=== PATIENT | male | born 1960 | race Two or more races ===

== ENCOUNTER 2020-04-25 21:35 | Inpatient (IN) | payer OTHER, MEDICAID ==
[~2020-04-25] VITALS: Ht 165.1 cm; Wt 59.0 kg
--- NOTE | 2020-04-25 21:41 | NUR ---
PT AAOX4. AMBULATORY, BIBRA FROM HOME. PER RA PT WAS SAT 60'S, 4L NC WAS PLACED WHICH INCREASED SAT TO 88%. UPPON ARRIVAL PT PLACED IN BED 7, ON HOGSHEAD INSPECTOR, AND PULSE OX. PLACED ON 6L NC WHICH PT SAT 88%. LINE ESTABLISHED LAC 18G, BLOOD WORK COLLECTED, SENT TO LAB. AWAITING MD FOR EVAL AND ORDERS.
--- NOTE | 2020-04-25 21:44 | NUR ---
PLACED ON SIMPLE MASK 10L SAT 94%. AWARE.
[2020-04-25] MEDS ORDERED: DEXAMETHASONE SOD PHOSPHATE 10 MG/ML VIAL ONE (21:59)
[2020-04-25] MEDS ORDERED: DEXAMETHASONE SOD PHOSPHATE 10 MG/ML VIAL IV ONE (22:00)
[2020-04-25] MEDS ORDERED: IV NS 0.9% 500 ML IV ONE (22:00)
[2020-04-25 22:20] LABS: BASOPHILS % (AUTO) 0.3 % (0.0-2.0); EOSINOPHILS % (AUTO) 0.5 % (0.0-6.0); HEMATOCRIT 43 % (39-51); HEMOGLOBIN 13.8 g/dL (13.5-17.5); LYMPHOCYTES # (AUTO) 1.4 /CMM (0.8-4.8); LYMPHOCYTES % (AUTO) 11.1 % (20.0-44.0); MEAN CORPUSCULAR HGB CONC 32 g/dl (31.0-36.0); MEAN CORPUSCULAR VOLUME 94 fL (80-96); NEUTROPHILS # (AUTO) 10.1 /CMM (1.8-8.9); NEUTROPHILS % (AUTO) 80.1 % (43.0-81.0); PLATELET COUNT (AUTO) 314 /CMM (150-450); RED BLOOD CELL COUNT(AUTO) 4.58 MIL/uL (4.5-6.0); WHITE BLOOD COUNT (AUTO) 12.6 K/uL (4.3-11.0)
--- NOTE | 2020-04-25 22:27 | NUR ---
MARANDAID SWABBED, SENT TO LAB.
--- NOTE | 2020-04-25 22:41 | NUR ---
AWAITING PT TO PROVIDE URINE SAMPLE.
--- NOTE | 2020-04-25 22:42 | NUR ---
LACTIC 4.0
[2020-04-25] MEDS ORDERED: CEFTRIAXONE 1GM BAG (ER ONLY) 50 ML IV ONE (22:49)
[2020-04-25] MEDS ORDERED: AZITHROMYCIN 500 MG VIAL ONE (22:49)
[2020-04-25 22:52] LABS: D-DIMER 18.2 mg/L(FEU (0.17-0.50)
--- NOTE | 2020-04-25 22:53 | NUR ---
RAPID COVID: NEG.
[2020-04-25 22:54] LABS: ALANINE AMINOTRANSFERASE 49 U/L (12-78); ALBUMIN 2.2 g/dL (3.4-5.0); ALKALINE PHOSPHATASE 129 U/L (46-116); ASPARTATE AMINOTRANSFERASE 53 U/L (15-37); B-TYPE NATRIURETIC PEPTIDE 66 PG/ML (0-125); BILIRUBIN,TOTAL 0.9 mg/dL (0.2-1.0); CALCIUM, SERUM 8.4 mg/dL (8.5-10.1); CARBON DIOXIDE 23 mmol/L (21-32); CHLORIDE 96 mmol/L (98-107); CREATININE 1.4 mg/dL (0.6-1.3); POTASSIUM 5.4 mmol/L (3.5-5.1); SODIUM SERUM 133 mmol/L (136-145); UREA NITROGEN, BLOOD 15 mg/dL (7-18)
[2020-04-25 22:56] LABS: GLUCOSE 413 mg/dL (74-106)
[2020-04-25 23:00] LABS: CREATINE KINASE, TOTAL 52 U/L (39-308); FERRITIN 740 ng/mL (8-388)
[2020-04-25] MEDS ORDERED: IV NS 0.9% 1,000 ML BAG IV ONE (23:00)
[2020-04-25] MEDS ORDERED: CEFTRIAXONE 1GM BAG (ER ONLY) 1 GM/50 ML PIGGYBACK IV ONE (23:00)
[2020-04-25] MEDS ORDERED: AZITHROMYCIN 500 MG in IV D5W 250 ML IV SCH (23:00)
[2020-04-25 23:04] LABS: C-REACTIVE PROTEIN 16.2 mg/dL (0.0-0.9)
[2020-04-25] MEDS ORDERED: METF-442 PO (23:27)
--- NOTE | 2020-04-25 23:28 | NUR ---
MED LIST UPDATED.
--- NOTE | 2020-04-25 23:39 | NUR ---
TELE 114-1
--- NOTE | 2020-04-25 23:51 | NUR ---
REPROT GIVEN TO ABHIJIT MUÑOZ FOR ZAHRA
--- NOTE | 2020-04-26 00:05 | NUR ---
ADMIT NOTE ADMITTED PATIENT FROM ER TO ROOM 114 VIA GURNEY. PATIENT IS A/O X4, ABLE TO VERBALIZE NEEDS. NOTED WITH SOB UPON EXERTION. ON O2 15 LPM VIA NON REBREATHER, O2 91%. PUT ON TELE MONITOR, WITH ST 118. SKIN IS INTACT. WITH IV ON LEFT AC #18 PATENT AND FLUSHED. SAFETY MEASURES IMPLEMENTED. BED LOCKED AND IN LOWEST POSITION. SIDE RAILS UP X2. CALL LIGHT WITHIN REACH. WILL CONTINUE TO MONITOR.
--- NOTE | 2020-04-26 00:13 | NUR ---
PT TRANSFERED PER ACLS PROTOCOL
[2020-04-26] MEDS ORDERED: MAG HYDROX/AL HYDROX/SIMETH 30 ML UDC PO PRN (01:00)
[2020-04-26] MEDS ORDERED: ONDANSETRON HCL/PF 4 MG/2 ML VIAL IVP PRN (01:00)
[2020-04-26] MEDS ORDERED: ZOLPIDEM TARTRATE 5 MG TABLET PO PRN (01:00)
[2020-04-26] MEDS ORDERED: HYDROCODONE/APAP 5/325MG TABLET PO PRN (01:00)
[2020-04-26] MEDS ORDERED: ACETAMINOPHEN 325 MG TABLET PO PRN (01:00)
[2020-04-26] MEDS ORDERED: ASPIRIN 325 MG TABLET PO ONE (01:00)
[2020-04-26] MEDS ORDERED: DEXTROSE 50%-WATER 50 ML DISP.SYRIN IV PRN (01:00)
[2020-04-26] MEDS ORDERED: INSULIN REGULAR, HUMAN 100 UNIT/ML 3 ML VIAL IV ONE (01:00)
[2020-04-26] MEDS ORDERED: MAGNESIUM HYDROXIDE 30 ML UDC PO PRN (01:00)
[2020-04-26] MEDS ORDERED: MORPHINE SULFATE INJ 2 MG/ML DISP.SYRIN IV PRN (01:00)
[2020-04-26] MEDS ORDERED: ALBUTEROL SULFATE INH 18 GM HFA.AER.AD IH PRN ×2 (01:00→05:00)
[2020-04-26] MEDS ORDERED: ENOXAPARIN SODIUM 40 MG/0.4 ML DISP.SYRIN SQ SCH (01:00)
[2020-04-26 01:10] LABS: BILIRUBIN,DIRECT 1.1 mg/dL (0.0-0.2)
[2020-04-26] MEDS: IV NS 0.9% 1,000 ML IV PRN ×2 (01:55→17:25)
--- NOTE | 2020-04-26 02:00 | NUR ---
WITH LACTIC ACID 2.8, INFORMED ADAL WITH NO NEW ORDERS AT THIS TIME. WILL CONTINUE TO MONITOR.
[2020-04-26 02:53] LABS: CALCIUM, SERUM 7.3 mg/dL (8.5-10.1); CREATININE 1.4 mg/dL (0.6-1.3); POTASSIUM 4.9 mmol/L (3.5-5.1)
--- NOTE | 2020-04-26 03:10 | NUR ---
RELAYED GLUCOSE LEVEL 499 TO ADAL WITH NEW ORDER FOR INSULIN REGULAR 20 UNNITS SQ X1 NOW AND RECHECK IN 30 MIN. NOTED AND CARRIED OUT. WILL CONTINUE TO MONITOR.
[2020-04-26] MEDS ORDERED: INSULIN REGULAR, HUMAN 100 UNIT/ML 10 ML VIAL SQ ONE (03:30)
[2020-04-26 04:00] VITALS: BP 107/76
--- NOTE | 2020-04-26 04:15 | NUR ---
PATIENT BLOOD SUGAR 433 AT THIS TIME, INFORMED ADAL WITH NEW ORDER FOR IV BOLUS NS 500ML X1 NOW NOTED AND CARRIED OUT.
[2020-04-26] MEDS ORDERED: IV NS 0.9% 500 ML IV ONE (04:30)
[2020-04-26 06:50] LABS: BASOPHILS % (AUTO) 0.1 % (0.0-2.0); HEMATOCRIT 43 % (39-51); HEMOGLOBIN 13.6 g/dL (13.5-17.5); LYMPHOCYTES # (AUTO) 0.8 /CMM (0.8-4.8); LYMPHOCYTES % (AUTO) 7.2 % (20.0-44.0); MEAN CORPUSCULAR HGB CONC 31 g/dl (31.0-36.0); MEAN CORPUSCULAR VOLUME 98 fL (80-96); MONOCYTES # (AUTO) 0.7 /CMM (0.1-1.30); MONOCYTES % (AUTO) 5.8 % (2.0-12.0); NEUTROPHILS # (AUTO) 10.2 /CMM (1.8-8.9); NEUTROPHILS % (AUTO) 86.9 % (43.0-81.0); PLATELET COUNT (AUTO) 242 /CMM (150-450); RED BLOOD CELL COUNT(AUTO) 4.42 MIL/uL (4.5-6.0); WHITE BLOOD COUNT (AUTO) 11.7 K/uL (4.3-11.0)
[2020-04-26 07:23] LABS: ALBUMIN 1.9 g/dL (3.4-5.0); CALCIUM, SERUM 7.6 mg/dL (8.5-10.1); CREATININE 1.3 mg/dL (0.6-1.3); MAGNESIUM 2.2 mg/dL (1.8-2.4); PHOSPHORUS 5.1 mg/dL (2.5-4.9); POTASSIUM 4.2 mmol/L (3.5-5.1); TOTAL PROTEIN, SERUM 6.3 g/dL (6.4-8.2)
--- NOTE | 2020-04-26 07:30 | NUR ---
POTATO SPOTTER OPENING NOTES Patient is alert and oriented x 4, breathing even and unlabored. No c/o sob, no s/sx of respiratory distress. Patient is on 15 liters NRB with 02 saturation of 92%. NAYELI peripheral line patent and intact, flushed well with IV fluids of 100 ml/hour. HOB kept elevated. Bed is in lowest and locked position. Call light with in reach. Will continue to monitor.
[2020-04-26 07:55] LABS: THYROID STIMULATING HORMONE 1.962 uIU/mL (0.358-3.74)
--- NOTE | 2020-04-26 07:55 | NUR ---
RN NOTES PATIENT A/O X4. NO SOB OR ANY RESPIRATORY DISTRESS. ON O2 15LPM VIA NON REBREATHER MASK, O2 92%. DENIES ANY PAIN OR DISCOMFORT. TELE MONITOR ON, ST 116. WITH IV ON LEFT AC #18 RUNNING NS 100MLS/HR. ALL DUE MEDS GIVEN ORDERED. NEEDS ATTENDED PROMPTLY. SAFETY MEASURES IN PLACE. BED LOCKED AND IN LOWEST POSITION WITH SR X2 UP. CALL LIGHT WITHIN REACH. ENDORSED TO ONCOMING SHIFT.
[2020-04-26] MEDS: BLOOD SUGAR DIAGNOSTIC 1 EACH STRIP IN SCH ×4 (07:58→21:33)
[2020-04-26 08:00] VITALS: BP 122/83
[2020-04-26] MEDS: INSULIN REGULAR, HUMAN 100 UNIT/ML 3 ML VIAL SQ PRN ×4 (08:03→21:33)
[2020-04-26 08:57] LABS: BAND % (MANUAL) 5 % (0.0-5.0); LYMPHOCYTES % (MANUAL) 8 % (16-48); METAMYELOCYTES % 1 % (0-0); MONOCYTES % (MANUAL) 5 % (0-11.0); NEUTROPHILS % (MANUAL) 81 (42-76)
[2020-04-26] MEDS ORDERED: IV NS 0.9% 250 ML IV ONE (09:09)
[2020-04-26] MEDS ORDERED: IOHEXOL-350 100 ML VIAL IV ONE (09:09)
--- NOTE | 2020-04-26 10:15 | NUR ---
RN NOTES Received patient from Xray counter intelligence technician in wheelchair after his CT PE call from Xray that patient is positive for saddle. Patient assessed Vitas 114/81,106 pr, rr 25, 02 92% on 15 liters NRB. No c/o sob or respiratory distress. Informed Dr Leyva. Dr will assess the patient.Patient closely monitored..
--- NOTE | 2020-04-26 10:35 | NUR ---
RN NOTES Patient did not c/o sob, no respiratory distress noted. Vitals WNL. IV fluids running at 100 ml/hour.
[2020-04-26] MEDS: ENOXAPARIN SODIUM 60 MG/0.6 ML DISP.SYRIN SQ SCH ×2 (11:20→22:42)
[2020-04-26 12:00] VITALS: BP 110/70
--- NOTE | 2020-04-26 12:00 | NUR ---
RN notes Currently awaiting duplex venous ultrasound for BLE. Followed up with Onesimo from Radiology
[2020-04-26] MEDS: CEFEPIME 2 GM in IV D5W 100 ML IV SCH ×2 (12:04→23:34)
--- NOTE | 2020-04-26 12:51 | NUR ---
Patient given his lovenox per md orders.
[2020-04-26] MEDS: DOXYCYCLINE 100 MG in IV D5W 100 ML IV SCH (13:38)
--- NOTE | 2020-04-26 15:45 | NUR ---
Called Radiology for follow up with duplex ultrasound for BLE.
[2020-04-26 16:00] VITALS: BP 107/75
--- NOTE | 2020-04-26 16:00 | NUR ---
RN NOTES Patient's urine specimen collected per md orders. Picked up by lab
--- NOTE | 2020-04-26 17:38 | NUR ---
Patient monitored frequently and no c/o sob, 02 saturation in 95%+ via non rebreather mask at 15lpm. No c/o sob. No respiratory distress noted. Patient's vitals WNL.
[2020-04-26 18:20] LABS: BILIRUBIN,URINE NEGATIVE (NEGATIVE); COLOR,URINE YELLOW (YELLOW); LEUKOCYTE ESTERASE ,URINE NEGATIVE (NEGATIVE); NITRITE, URINE NEGATIVE (NEGATIVE); PROTEIN,URINE TRACE mg/dl (NEGATIVE); UGLUCOSE 500 MG/DL mg/dL (NEGATIVE); UROBILINOGEN,URINE 0.2 EU/dL (0.2)
--- NOTE | 2020-04-26 18:39 | NUR ---
PRELIMINARY REPORT OF BILATERAL DUPLEX LOWER EXTREMITY US SHOWED POSITIVE FOR DVT AT RIGHT SFV PROX/MID/DISTAL AND RT POPV. INITIAL RESULTS ADVISED TO RN.
--- NOTE | 2020-04-26 18:40 | NUR ---
GOLF COURSE EQUIPMENT OPERATOR NOTES Patient's duplex venous ultrasound done and received preliminary results from Bottomer Operator.Per preliminary report patient is + for DVT to proximal, mid and distal to left lower extremity in superficial femoral vein and left popliteal vein. Currently awaiting final report. Informed Dr. Gordon Garcia and no new orders.
[2020-04-26 18:48] LABS: BACTERIA,URINE Rare /HPF (None Seen); RBC,URINE 0-2 /HPF (0-2); SQUAMOUS EPITHELIAL CELL,UR None Seen /HPF (None Seen); WBC,URINE 0-2 /HPF (0-3)
--- NOTE | 2020-04-26 18:51 | NUR ---
CORRECTION: POSITIVE DVT ON THE LEFT SIDE ONLY AND NOT THE RIGHT SIDE OF THE LEG.
--- NOTE | 2020-04-26 19:23 | NUR ---
CATTLE TESTER CLOSING NOTES Patient is alert and oriented x 4, breathing even and unlabored. No c/o sob, no s/sx of respiratory distress. Patient is on 15 liters NRB with 02 saturation of 91%. NAYELI peripheral line patent and intact, flushed well with IV fluids of 100 ml/hour. HOB kept elevated. Bed is in lowest and locked position. Call light with in reach. Will endorse to next shift for follow up.
[2020-04-26 19:26] LABS: CREATININE, URINE 109.3 MG/DL (30.0-125.0); URINE TOTAL PROTEIN 52.7 mg/dL (0-11.9)
--- NOTE | 2020-04-26 19:30 | NUR ---
RECEIVED PT ON BED AWAKE A/O X3 ABLE TO VERBALIZE NEEDS ON O2 VIA NON REBREATHER MASK @ 15L SPO2 97% TELE MONITOR READS SINUS TACHY 100'S NO SIGN AND SYMPTOMS OF DISTRESS NO PAIN COMPLAINED HAVE LEFT AC IV #18 PATENT AND FLUSHED , BED ON LOWEST POSITION AND LOCKED SIDE RAILS UP X2 CALL LIGHT WITHIN REACH WILL CONT TO MONITOR THE PT
[2020-04-26 19:42] LABS: EOSINOPHIL,URINE None Seen
[2020-04-26 20:00] VITALS: BP 114/78
[2020-04-26] MEDS ORDERED: CEFEPIME 1 GM in IV D5W 50 ML IV SCH (21:00)
[2020-04-26] MEDS: DEXAMETHASONE SOD PHOSPHATE 10 MG/ML VIAL IV SCH (21:32)
[2020-04-26] MEDS: INSULIN GLARGINE, 100 UNIT/ML CARTRIDGE SQ SCH (21:33)
[2020-04-26] MEDS ORDERED: CEFTRIAXONE 1 G in IV D5W 50 ML IV SCH (22:30)
[2020-04-26] MEDS ORDERED: AZITHROMYCIN 500 MG in IV D5W 250 ML IV SCH (23:00)
[2020-04-27] VITALS (35 sets, daily range): BP systolic 88–161; BP diastolic 35–97
[2020-04-27] MEDS: DOXYCYCLINE 100 MG in IV D5W 100 ML IV SCH ×2 (00:27→14:11)
[2020-04-27] MEDS: IV NS 0.9% 1,000 ML IV PRN (05:15)
[2020-04-27 06:48] LABS: BASOPHILS # (AUTO) 0.2 /CMM (0.0-0.2); BASOPHILS % (AUTO) 1.9 % (0.0-2.0); EOSINOPHILS % (AUTO) 0.2 % (0.0-6.0); HEMATOCRIT 44 % (39-51); LYMPHOCYTES # (AUTO) 0.9 /CMM (0.8-4.8); LYMPHOCYTES % (AUTO) 7.2 % (20.0-44.0); MEAN CORPUSCULAR HGB CONC 32 g/dl (31.0-36.0); MEAN CORPUSCULAR VOLUME 95 fL (80-96); MONOCYTES # (AUTO) 0.6 /CMM (0.1-1.30); MONOCYTES % (AUTO) 5.1 % (2.0-12.0); NEUTROPHILS # (AUTO) 10.5 /CMM (1.8-8.9); NEUTROPHILS % (AUTO) 85.6 % (43.0-81.0); PLATELET COUNT (AUTO) 318 /CMM (150-450); RED BLOOD CELL COUNT(AUTO) 4.63 MIL/uL (4.5-6.0); WHITE BLOOD COUNT (AUTO) 12.3 K/uL (4.3-11.0)
--- NOTE | 2020-04-27 06:58 | NUR ---
PT ON BED ASLEEP EASY TO WAKE UP NO SIGN OF ANY DISTRESS, SPO2 97% VIA 15L NON REBREATHER MASK O2,NO SIGNIFICANT CHANGES ON CONDITION NOTED, ALL NEEDS ATTENDED TELE MONITOR READS SINUS TACHY 100'S BED ON LOWEST POSITION AND LOCKED SIDE RAILS UP X 2 CALL LIGHT WITHIN REACH WILL ENDORSED TO AM SHIFT NURSE
[2020-04-27 07:02] LABS: CALCIUM, SERUM 8.3 mg/dL (8.5-10.1); CREATININE 0.8 mg/dL (0.6-1.3); POTASSIUM 4.4 mmol/L (3.5-5.1)
--- NOTE | 2020-04-27 07:30 | NUR ---
SLACKLINE OPERATOR OPENING NOTES Patient is alert and oriented . Patient is breathing even and unlabored. NNo s/s of respiratory distress. Patient is on 15 liters NRB with 02 saturation of 96%. NAYELI peripheral line patent and intact, flushed well with IV fluids of 100 ml/hour. HOB kept elevated. Bed is in lowest and locked position. Call light with in reach. Will continue to monitor.
[2020-04-27] MEDS: INSULIN REGULAR, HUMAN 100 UNIT/ML 3 ML VIAL SQ PRN ×4 (07:54→22:52)
[2020-04-27] MEDS: BLOOD SUGAR DIAGNOSTIC 1 EACH STRIP IN SCH ×4 (07:56→22:48)
--- NOTE | 2020-04-27 08:50 | NUR ---
QUALITY CONTROL MICROBIOLOGY SUPERVISOR NOTES Patient noted with BP of 161/97. Dr Gordon Garcia placed an order for antihypertensive, medication given and Bp rechecked. and noted to be 134/67 1 hour post med
[2020-04-27] MEDS: DEXAMETHASONE SOD PHOSPHATE 10 MG/ML VIAL IV SCH (08:58)
[2020-04-27] MEDS: ENOXAPARIN SODIUM 60 MG/0.6 ML DISP.SYRIN SQ SCH ×2 (08:59→21:40)
[2020-04-27] MEDS: METOPROLOL TARTRATE 25 MG TABLET PO SCH ×2 (09:05→21:29)
[2020-04-27] MEDS: CEFEPIME 2 GM in IV D5W 100 ML IV SCH (12:22)
[2020-04-27] MEDS ORDERED: ALTEPLASE 100 MG in WATER FOR INJECTION,STERILE 100 ML IV ONE (12:30)
--- NOTE | 2020-04-27 13:00 | NUR ---
CONFERENCE CONCIERGE NOTES Patient was transferred to ICU due to order for TPA. Patient in good stable condition.Vitals 118/78,94% o2 via NRB at 15 liters. No c/o sob, breathing even and unlabored. Patient transferred with campus monitor and on . Report given to ICU nurse Grey.
--- NOTE | 2020-04-27 13:10 | NUR ---
PT RECEIVED IN ICU FROM [facility] FOR ALTEPLASE ADMINISTRATION. PT ALERT AND ORIENTED X 4 AND ABLE TO MOVE EXTREMITIES WITH NO ISSUES. PT ON 15L NRB O2 SAT 95%. PT HAS LAC 18 INTACT AND FLUSHED WELL. ALL SAFETY MEASURES IN PLACE. AWAITING MIDLINE INSERTION FOR BEGIN TPA.
--- NOTE | 2020-04-27 19:30 | NUR ---
PT CURRENTLY USING 6L NASAL CANNULA O2 SAT 96%. NO SOB OR RESPIRATORY DISTRESS, PATIENT ALERT AND ORIENTED X 4. Q15 NEURO CHECKS COMPLETED DURING TPA ADMINISTRATION, Q1H NEURO CHECKS COMPLETED FOR 4 HOURS PER PROTOCOL.
[2020-04-27] MEDS: INSULIN GLARGINE, 100 UNIT/ML CARTRIDGE SQ SCH (22:00)
[2020-04-28] VITALS (27 sets, daily range): BP systolic 90–131; BP diastolic 44–76
[2020-04-28] MEDS: CEFEPIME 2 GM in IV D5W 100 ML IV SCH ×2 (00:25→11:28)
[2020-04-28] MEDS: DOXYCYCLINE 100 MG in IV D5W 100 ML IV SCH ×2 (00:55→14:12)
[2020-04-28] MEDS: IV NS 0.9% 1,000 ML IV PRN ×2 (00:55→14:00)
--- NOTE | 2020-04-28 04:35 | NUR ---
AIRLINE LOUNGE RECEPTIONIST PT NOTED WITH ONE EPISODE OF BLOODY SECRETIONS.
--- NOTE | 2020-04-28 07:30 | NUR ---
HIGH VALUE ASSOCIATE OPENING NOTE PT LYING IN BED A/Ox4 ON NC 4LPM, SPO2 OF 96%, NO SIGNS OF RESP DISTRESS OR SOB, BREATHING IS EVEN AND UNLABORED. PT SKIN INTACT, USES URINAL. PT HAS LAC #18 AND NAYELI #18 INFUSING NS @ 100ML/HR, BOTH PATENT, FLUSHED AND INTACT WITH NO SIGNS OF INFILTRATION/INFECTION. PT DENIES PAIN. WILL F/U ABOUT REMDESIVIR WITH PHARMACY. ALL SAFETY MEASURES IN PLACE. WILL CONTINUE TO MONITOR.
[2020-04-28] MEDS: DEXAMETHASONE SOD PHOSPHATE 10 MG/ML VIAL IV SCH (08:32)
[2020-04-28] MEDS: METOPROLOL TARTRATE 25 MG TABLET PO SCH ×2 (08:33→20:46)
[2020-04-28] MEDS: INSULIN REGULAR, HUMAN 100 UNIT/ML 3 ML VIAL SQ PRN ×4 (08:38→23:28)
[2020-04-28] MEDS: ENOXAPARIN SODIUM 60 MG/0.6 ML DISP.SYRIN SQ SCH ×2 (08:38→20:49)
[2020-04-28] MEDS: BLOOD SUGAR DIAGNOSTIC 1 EACH STRIP IN SCH ×4 (08:39→23:25)
--- NOTE | 2020-04-28 08:45 | NUR ---
RN NOTE PER DR LEONARD, CONTINUE LOVENOX 60MG TREATMENT. IS AWARE PT HAD TPA INFUSION LAST SHIFT AND ONE EPISODE OF COUGHING UP BLOODY SPUTUM
[2020-04-28 09:32] LABS: ALBUMIN 2.2 g/dL (3.4-5.0); BILIRUBIN,DIRECT 0.3 mg/dL (0.0-0.2); BILIRUBIN,TOTAL 0.7 mg/dL (0.2-1.0); CALCIUM, SERUM 8.3 mg/dL (8.5-10.1); CREATININE 0.7 mg/dL (0.6-1.3); POTASSIUM 3.9 mmol/L (3.5-5.1); TOTAL PROTEIN, SERUM 6.1 g/dL (6.4-8.2)
[2020-04-28 09:33] LABS: BASOPHILS # (AUTO) 0.1 /CMM (0.0-0.2); BASOPHILS % (AUTO) 0.8 % (0.0-2.0); EOSINOPHILS % (AUTO) 0.1 % (0.0-6.0); HEMATOCRIT 40 % (39-51); HEMOGLOBIN 13.4 g/dL (13.5-17.5); LYMPHOCYTES # (AUTO) 1.7 /CMM (0.8-4.8); LYMPHOCYTES % (AUTO) 18.7 % (20.0-44.0); MEAN CORPUSCULAR HGB CONC 33 g/dl (31.0-36.0); MEAN CORPUSCULAR VOLUME 92 fL (80-96); MONOCYTES # (AUTO) 0.7 /CMM (0.1-1.30); MONOCYTES % (AUTO) 7.3 % (2.0-12.0); NEUTROPHILS # (AUTO) 6.8 /CMM (1.8-8.9); NEUTROPHILS % (AUTO) 73.1 % (43.0-81.0); PLATELET COUNT (AUTO) 346 /CMM (150-450); RED BLOOD CELL COUNT(AUTO) 4.36 MIL/uL (4.5-6.0); WHITE BLOOD COUNT (AUTO) 9.3 K/uL (4.3-11.0)
[2020-04-28] MEDS ORDERED: REMDESIVIR (CHARGED) 200 MG, *LOADING DOSE 1 EA in IV NS 0.9% 210 ML IV ONE (12:00)
--- NOTE | 2020-04-28 12:37 | NUR ---
RN NOTE 2X1 INCH HEMATOMA NOTED ON RLQ ABDOMEN AND PT COUGHING UP SCANT AMOUNTS OF BLOOD IN SPUTUM. PER DR OSWALD, HOLD LOVENOX
--- NOTE | 2020-04-28 13:30 | NUR ---
RN NOTE TRANSFERRED PT IN STABLE CONDITION TO [facility] #[id number]. REPORT GIVEN TO NISH MUÑOZ
--- NOTE | 2020-04-28 14:00 | NUR ---
PT RECEIVED ICU OVERFLOW FROM [facility]. PT ON 4L NASAL CANNULA NO SOB, PATIENT ALERT AND ORIENTED X 4. WILL CONTINUE TO MONITOR CLOSELY. IV SITE INTACT NO SIGNS OF INFECTION OR INFILTRATION.
--- NOTE | 2020-04-28 20:00 | NUR ---
Icu overflow notes Received pts in bed awake a/ox4 on 4 liters of 02 via nc sating 96 % On tele sr on the monitor . v/s stable afebrle , no sob no distress noted ,ivf ns at 100cc/hr infusing well ,all needs attended too .calllight with in reach .will continue to monitor pts.
--- NOTE | 2020-04-28 20:30 | NUR ---
icu overflow notes due meds given as ordered ,pts totransfer to icu for bed availability.
--- NOTE | 2020-04-28 21:00 | NUR ---
icu overflow notes Report given to keo ,pts will go to room 258 ,Pts transfer to icu room 258 in stable condition .
--- NOTE | 2020-04-28 22:40 | NUR ---
travel registered nurse nicu. received the pt from azeem ,icu over flow . pt ia awake, alert, follow commands. oxygen 4l via nasal cannula. process mechanic showing nsr. iv lt upper arm mid line. ivf ns 100ml/h. hob elevated. will continue to monitor vitals.
[2020-04-28] MEDS: INSULIN GLARGINE, 100 UNIT/ML CARTRIDGE SQ SCH (23:26)
[2020-04-29] VITALS (30 sets, daily range): BP systolic 98–132; BP diastolic 59–73
[2020-04-29] MEDS: CEFEPIME 2 GM in IV D5W 100 ML IV SCH ×2 (01:50→13:07)
[2020-04-29] MEDS: DOXYCYCLINE 100 MG in IV D5W 100 ML IV SCH ×2 (01:50→13:07)
[2020-04-29 04:35] LABS: BASOPHILS % (AUTO) 0.6 % (0.0-2.0); EOSINOPHILS % (AUTO) 0.2 % (0.0-6.0); HEMATOCRIT 36 % (39-51); HEMOGLOBIN 11.9 g/dL (13.5-17.5); LYMPHOCYTES # (AUTO) 2.1 /CMM (0.8-4.8); LYMPHOCYTES % (AUTO) 24.9 % (20.0-44.0); MEAN CORPUSCULAR HGB CONC 33 g/dl (31.0-36.0); MEAN CORPUSCULAR VOLUME 91 fL (80-96); MONOCYTES # (AUTO) 0.8 /CMM (0.1-1.30); MONOCYTES % (AUTO) 9.4 % (2.0-12.0); NEUTROPHILS # (AUTO) 5.4 /CMM (1.8-8.9); NEUTROPHILS % (AUTO) 64.9 % (43.0-81.0); PLATELET COUNT (AUTO) 361 /CMM (150-450); RED BLOOD CELL COUNT(AUTO) 3.99 MIL/uL (4.5-6.0); WHITE BLOOD COUNT (AUTO) 8.3 K/uL (4.3-11.0)
[2020-04-29 04:50] LABS: ALBUMIN 1.9 g/dL (3.4-5.0); BILIRUBIN,DIRECT 0.2 mg/dL (0.0-0.2); BILIRUBIN,TOTAL 0.5 mg/dL (0.2-1.0); CALCIUM, SERUM 7.9 mg/dL (8.5-10.1); CREATININE 0.7 mg/dL (0.6-1.3); TOTAL PROTEIN, SERUM 5.4 g/dL (6.4-8.2)
--- NOTE | 2020-04-29 05:48 | NUR ---
agricultural specialist. am care, given. pt slept well during shift. oxygen 4l via nasal cannula. sat 98%. no acute distress noted, station examiner showing nsr. iv rt hand ivf ns 100ml/h. hob elevated. afebrile. will continue to monitor vitals
--- NOTE | 2020-04-29 07:30 | NUR ---
RECEIVED PT AWAKE AND ORIENTED X 3-4. NOT IN ANY ACUTE DISTRESS. ON O2 AT 4LPM, WITH O2 SATURATION BETWEEN 95-97. WILL CONTINUE TO MONITOR.
[2020-04-29] MEDS: BLOOD SUGAR DIAGNOSTIC 1 EACH STRIP IN SCH ×4 (08:13→22:12)
[2020-04-29] MEDS: ENOXAPARIN SODIUM 60 MG/0.6 ML DISP.SYRIN SQ SCH ×2 (09:02→20:45)
[2020-04-29] MEDS: DEXAMETHASONE SOD PHOSPHATE 10 MG/ML VIAL IV SCH (09:02)
[2020-04-29] MEDS: METOPROLOL TARTRATE 25 MG TABLET PO SCH ×2 (09:03→20:45)
[2020-04-29] MEDS: REMDESIVIR (CHARGED) 100 MG in IV NS 0.9% 100 ML IV SCH (13:05)
--- NOTE | 2020-04-29 17:20 | NUR ---
TRANSFERRED TO MED SURG 2. PT IS ALERT / AWAKE, ORIENTED X3. ON 02 @ 4LPM WITH 02 SAT AT 95%. BEDSIDE REPORT GIVEN TO DILLON (TAI).
--- NOTE | 2020-04-29 17:30 | NUR ---
tele estimator and drafter: notes received pt from icu via bed accompanied by 2 staff. pt awake, a/ox4. no c/o pain or any discomfort. oriented to room and surroundings. vss, afebrile. instructed to call for assistance. will continue to monitor.
[2020-04-29] MEDS: INSULIN REGULAR, HUMAN 100 UNIT/ML 3 ML VIAL SQ PRN ×2 (17:56→22:15)
--- NOTE | 2020-04-29 19:20 | NUR ---
tele diagnostic radiologist: notes report given to gelacio webb) for continuity of care.
--- NOTE | 2020-04-29 19:35 | NUR ---
RN OPENING NOTES: RECEIVED PT A/OX4 IN BED RESTING COMFORTABLY. PATIENT IN NO S/SX OF ACUTE DISTRESS AT THIS TIME. NO SOB NOTED. PATIENT'S BREATHING IS EVEN AND UNLABORED. PATIENT IS ON 4L OF OXYGEN VIA NC; TOLERATING WELL. PATIENT ON TELE MONITORING READING SINUS RHYTHM HR IS @80s AT THE TIME OF RECEIVED. PATIENT ON CONSISTENT CARB DIET; TOLERATES WELL. NOTED IV SITE ON L AC #18 AND L UA MIDLINE; BOTH PATENT, INTACT AND FLUSHING WELL; NO S/S OF INFECTION OR INFILTRATION. WITH IV FLUID RUNNING ORDERED. SAFETY MEASURES HAVE BEEN PROVIDED AND IMPLEMENTED. PATIENT BED ALARM IS ON. HEAD OF BED ELEVATED. BED IS LOCKED, IN LOWEST POSITION AND SIDE RAILS UP. CALL LIGHT WITHIN REACH OF THE PATIENT. APPLICABLE ISOLATION PRECAUTIONS IN PLACE. WILL CONTINUE TO MONITOR AND REASSESS FOR ANY CHANGES AND WILL CARRY OUT ANY ONGOING AND ACTIVE MD ORDER.
[2020-04-29] MEDS: INSULIN GLARGINE, 100 UNIT/ML CARTRIDGE SQ SCH (22:15)
--- NOTE | 2020-04-29 23:00 | NUR ---
RN NOTES PATIENT REMAINS IN NO ACUTE RESPIRATORY DISTRESS AT THIS TIME, NO CHANGES TO CONDITION/STATUS. MANAGER ENVIRONMENTAL AFFAIRS WELL AWARE. WILL CONTINUE TO MONITOR AND REASSESS FOR ANY CHANGES THROUGHOUT THE SHIF
[2020-04-30] VITALS: BP 102/68
[2020-04-30] MEDS: CEFEPIME 2 GM in IV D5W 100 ML IV SCH (00:30)
[2020-04-30] MEDS: DOXYCYCLINE 100 MG in IV D5W 100 ML IV SCH (00:33)
[2020-04-30] MEDS: IV NS 0.9% 1,000 ML IV PRN (01:08)
--- NOTE | 2020-04-30 03:00 | NUR ---
RN NOTES NO CHANGES IN PATIENT CONDITION AT THIS TIME PATIENT VITALS STABLE, NO SIGNS OF ACUTE RESPIRATORY DISTRESS. PATIENT STILL IN BED SLEEPING COMFORTABLY. WILL CONTINUE TO MONITOR AND REASSESS FOR ANY CHANGES THROUGHOUT THE SHIFT.
[2020-04-30 04:00] VITALS: BP_SYST 101; BP_SYST 108; BP_DIAS 66; BP_DIAS 68
[2020-04-30 06:24] LABS: BASOPHILS # (AUTO) 0.1 /CMM (0.0-0.2); BASOPHILS % (AUTO) 0.9 % (0.0-2.0); HEMATOCRIT 36 % (39-51); HEMOGLOBIN 12.2 g/dL (13.5-17.5); LYMPHOCYTES # (AUTO) 1.9 /CMM (0.8-4.8); MEAN CORPUSCULAR HGB CONC 34 g/dl (31.0-36.0); MEAN CORPUSCULAR VOLUME 91 fL (80-96); MONOCYTES # (AUTO) 0.9 /CMM (0.1-1.30); MONOCYTES % (AUTO) 9.4 % (2.0-12.0); NEUTROPHILS # (AUTO) 6.3 /CMM (1.8-8.9); NEUTROPHILS % (AUTO) 68.7 % (43.0-81.0); PLATELET COUNT (AUTO) 382 /CMM (150-450); RED BLOOD CELL COUNT(AUTO) 3.93 MIL/uL (4.5-6.0); WHITE BLOOD COUNT (AUTO) 9.2 K/uL (4.3-11.0)
[2020-04-30] MEDS: INSULIN REGULAR, HUMAN 100 UNIT/ML 3 ML VIAL SQ PRN ×4 (06:34→21:48)
[2020-04-30] MEDS: BLOOD SUGAR DIAGNOSTIC 1 EACH STRIP IN SCH ×4 (06:34→21:39)
--- NOTE | 2020-04-30 06:50 | NUR ---
RN CLOSING NOTE: PATIENT REMAINS IN ROOM IN NO SIGNS OF RESPIRATORY DISTRESS. SAFETY MEASURES IMPLEMENTED, BED IN LOWEST POSITION, LOCKED, SIDE RAILS UP, CALL LIGHT WITHIN REACH. ALL NEEDS AND ORDERS ADDRESSED DURING THE SHIFT. IV ACCESS MAINTAINED INTACT, SECURED AND FLUSHING WELL. ALL DUE MEDS GIVEN ORDERED & SCHEDULED ; PATIENT TOLERATED WELL. PATIENT KEPT CLEAN AND COMFORTABLE WITHIN THE SHIFT. PATIENT ENDORSED TO INCOMING SHIFT RN WITH STABLE VITAL SIGN AND FOR CONTINUITY OF CARE.
[2020-04-30 07:03] LABS: ALBUMIN 1.9 g/dL (3.4-5.0); BILIRUBIN,DIRECT 0.2 mg/dL (0.0-0.2); BILIRUBIN,TOTAL 0.5 mg/dL (0.2-1.0); CALCIUM, SERUM 8.3 mg/dL (8.5-10.1); CREATININE 0.6 mg/dL (0.6-1.3); POTASSIUM 4.6 mmol/L (3.5-5.1); TOTAL PROTEIN, SERUM 5.4 g/dL (6.4-8.2)
--- NOTE | 2020-04-30 07:51 | NUR ---
TELE/RN OPENING NOTES RECEIVED PATIENT ON BED, ALERT AND ORIENTED X4. PATIENT IS ON 4 L OXYGEN VIA NASAL CANNULA SATURATING WELL. PATIENT IN NO APPARENT RESPIRATORY DISTRESS NOTED. NO SIGN AND SYMPTOM OF PAIN NOTED AT THIS TIME. TELE MONITOR READING SINUS RHYTHM 85 BPM. WILL CONTINUE TO MONITOR.
[2020-04-30 08:00] VITALS: BP 102/64
[2020-04-30] MEDS: DEXAMETHASONE SOD PHOSPHATE 10 MG/ML VIAL IV SCH (08:43)
[2020-04-30] MEDS: ENOXAPARIN SODIUM 60 MG/0.6 ML DISP.SYRIN SQ SCH (08:44)
[2020-04-30] MEDS: METOPROLOL TARTRATE 25 MG TABLET PO SCH ×2 (08:44→20:57)
--- NOTE | 2020-04-30 09:55 | NUR ---
TELE/RN NOTES BP 102/64 P 84 METOPROLOL 25MG P.O. WAS WITH HELD. WILL CONTINUE TO MONITOR.
[2020-04-30] MEDS: REMDESIVIR (CHARGED) 100 MG in IV NS 0.9% 100 ML IV SCH (12:14)
[2020-04-30 16:13] VITALS: BP 113/84
[2020-04-30] MEDS: APIXABAN 5 MG TABLET PO SCH (16:17)
--- NOTE | 2020-04-30 19:24 | NUR ---
TELE/RN CLOSING NOTES PATIENT IS ON BED. ALERT AND ORIENTED X4. PATIENT IS ON 4 L OXYGEN VIA NASAL CANNULA SATURATION 96%. PATIENT IN NO APPARENT RESPIRATORY DISTRESS NOTED. NO COMPLAINED OF PAIN NOTED AT THIS TIME. TELE MONITOR READING SINUS RHYTHM 84 BPM. SEEN EXAMINED BY MD WITH ORDERS MADE AND CARRIED. ALL DUE MEDICATIONS WAS GIVEN. SAFETY PRECAUTIONS WAS IN PLACED. BED IN LOWEST POSITION AND LOCKED. SPECIAL EFFECTS TECHNICIAN RAIL UP AND LOCKED X2. CALL LIGHT LIGHT WITHIN REACH. WILL ENDORSED TO TUBE MILL OPERATOR FOR ZAHRA.
--- NOTE | 2020-04-30 19:28 | NUR ---
patient services clerk opening notes Received Pt from morning nurse. Pt is sitting in bed comfortably watching TV. Pt is alert and orientedX4. Respiration on 3 L NC. No SOB. No S/S of distress noted. NAYELI#18 is clean, intact and flushes well, SL. LAC# 18 is clean, intact and SL. Tele monitor showed SR HR at 75 bpm. Safety precautions is maintained. Bed at low position, brakes locked, side rails upX2 and call light is within reach. Will continue to monitor.
[2020-04-30 20:00] VITALS: BP 109/66
[2020-04-30] MEDS: INSULIN GLARGINE, 100 UNIT/ML CARTRIDGE SQ SCH (21:46)
[2020-05-01] VITALS: BP 119/62
[2020-05-01 04:00] VITALS: BP 115/69
--- NOTE | 2020-05-01 06:42 | NUR ---
drama director notes Pt's blood sugar in am was 55. Snacks and juices was given to Pt last night. Explained Pt of hypoglycemia and hyperglycemia. Informed Pt to eat the snacks. Pt only eat half of the snacks. Explained risks and benefits. Pt verbalize understanding. Rechecked again Pt blood sugar is 66. Pt is eating snacks and juices. Will rechecked again in 15 minutes.
--- NOTE | 2020-05-01 07:11 | NUR ---
RN notes Pt's blood sugar is 105. Pt is alert and orientedX4. NO S/S of distress noted. No insulin is given per level ordered. Will continue to monitor.
--- NOTE | 2020-05-01 07:15 | NUR ---
english composition teacher closing notes Pt is resting in bed comfortably. Pt is alert and orientedX4. Respiration on 3 L NC. No SOB. No S/S of distress noted. NAYELI#18 is clean, intact and flushes well, SL. LAC# 18 is clean, intact and SL. Tele monitor showed SR HR at 73 bpm. Kept Pt clean, dry and comfortable. All needs met and attended. Safety precautions is maintained. Bed at low position, brakes locked, side rails upX2, urinal at the bedside, and call light is within reach. Will endorse to morning nurse for ZAHRA.
--- NOTE | 2020-05-01 07:25 | NUR ---
forensic sergeant opening notes Bedside endorsement done. Patient is in bed, awake and verbally responsive. Alert and oriented X4, able to make needs known. Breathing even and unlabored, on 3L NC, no sob noted. NAYELI midline #18 and LAC #18 intact and patent. On tele monitoring, reading of SR, HR in the 70's. Patient able to use urinal at bedside and states that he can ambulate w/in the room. Safety precautions in place: bed locked and on lowest position, side rails up X2, call light within reach. Will continue to monitor.
[2020-05-01] MEDS: INSULIN REGULAR, HUMAN 100 UNIT/ML 3 ML VIAL SQ PRN ×3 (07:36→21:26)
[2020-05-01] MEDS: BLOOD SUGAR DIAGNOSTIC 1 EACH STRIP IN SCH ×4 (07:36→21:26)
[2020-05-01 07:43] LABS: BASOPHILS # (AUTO) 0.1 /CMM (0.0-0.2); BASOPHILS % (AUTO) 0.7 % (0.0-2.0); EOSINOPHILS % (AUTO) 0.9 % (0.0-6.0); HEMATOCRIT 43 % (39-51); HEMOGLOBIN 14.4 g/dL (13.5-17.5); LYMPHOCYTES # (AUTO) 2.6 /CMM (0.8-4.8); LYMPHOCYTES % (AUTO) 27.9 % (20.0-44.0); MEAN CORPUSCULAR HGB CONC 33 g/dl (31.0-36.0); MEAN CORPUSCULAR VOLUME 92 fL (80-96); MONOCYTES # (AUTO) 0.9 /CMM (0.1-1.30); MONOCYTES % (AUTO) 9.9 % (2.0-12.0); NEUTROPHILS # (AUTO) 5.7 /CMM (1.8-8.9); NEUTROPHILS % (AUTO) 60.6 % (43.0-81.0); PLATELET COUNT (AUTO) 475 /CMM (150-450); WHITE BLOOD COUNT (AUTO) 9.5 K/uL (4.3-11.0)
[2020-05-01 08:00] VITALS: BP 113/67
[2020-05-01 08:19] LABS: ALBUMIN 2.3 g/dL (3.4-5.0); BILIRUBIN,DIRECT 0.2 mg/dL (0.0-0.2); BILIRUBIN,TOTAL 0.6 mg/dL (0.2-1.0); CALCIUM, SERUM 8.6 mg/dL (8.5-10.1); CREATININE 0.8 mg/dL (0.6-1.3); POTASSIUM 3.6 mmol/L (3.5-5.1); TOTAL PROTEIN, SERUM 6.3 g/dL (6.4-8.2)
[2020-05-01] MEDS: DEXAMETHASONE SOD PHOSPHATE 10 MG/ML VIAL IV SCH (09:09)
[2020-05-01] MEDS: METOPROLOL TARTRATE 25 MG TABLET PO SCH ×2 (09:10→20:33)
[2020-05-01] MEDS: APIXABAN 5 MG TABLET PO SCH ×2 (09:11→16:53)
[2020-05-01 11:56] LABS: BAND % (MANUAL) 1 % (0.0-5.0); EOSINOPHILS % (MANUAL) 1 % (0-4); LYMPHOCYTES % (MANUAL) 35 % (16-48); MONOCYTES % (MANUAL) 10 % (0-11.0); NEUTROPHILS % (MANUAL) 53 (42-76)
[2020-05-01 12:00] VITALS: BP 106/65
[2020-05-01] MEDS: REMDESIVIR (CHARGED) 100 MG in IV NS 0.9% 100 ML IV SCH (12:02)
[2020-05-01 16:00] VITALS: BP 108/66
--- NOTE | 2020-05-01 19:13 | NUR ---
senior application security consultant closing notes Patient is in bed resting, awake and verbally responsive. Alert and oriented X4, able to make needs known. Breathing even and unlabored, continues on 3L NC, no sob noted. NAYELI midline #18 and LAC #18 intact and patent. On tele monitoring, reading of SR, HR in low-mid 70's. Safety precautions maintained: bed locked and on lowest position, side rails up X2, call light within reach. Will endorse to night shift supervisor rn for nan.
--- NOTE | 2020-05-01 19:39 | NUR ---
SUPERVISOR LABORATORY ANIMAL FACILITY NOTES PATIENT IN BED; A/O X4 ABLE TO MAKE NEEDS KNOWN. ON O2 3LPM VIA NASAL CANNULA; TOLERATING WELL WITH NO SOB. ON EXTERNAL CARDIAC MONITORING READING SR AND HR AT 81. DENIES PAIN OR DISCOMFORT. NO S/S OF DISTRESS. SAFETY MEASURES IN PLACE; BED AT LOWEST LOCKED POSITION; SIDE RAILS UP X2, CALL LIGHT WITHIN REACH, ALL NEEDS MET AT THIS TIME. WILL CONTINUE TO MONITOR. Addendum: 05/01/20 at 1944 by OLIVA BERGERON RN SUPERVISOR LABORATORY ANIMAL FACILITY OPENING NOTES
[2020-05-01 20:00] VITALS: BP 114/67
[2020-05-01] MEDS: INSULIN GLARGINE, 100 UNIT/ML CARTRIDGE SQ SCH (21:25)
[2020-05-02] VITALS (7 sets, daily range): BP systolic 97–115; BP diastolic 64–73
[2020-05-02 06:45] LABS: BASOPHILS % (AUTO) 0.2 % (0.0-2.0); EOSINOPHILS % (AUTO) 0.8 % (0.0-6.0); HEMATOCRIT 45 % (39-51); HEMOGLOBIN 14.5 g/dL (13.5-17.5); LYMPHOCYTES # (AUTO) 3.5 /CMM (0.8-4.8); MEAN CORPUSCULAR HGB CONC 32 g/dl (31.0-36.0); MEAN CORPUSCULAR VOLUME 92 fL (80-96); MONOCYTES % (AUTO) 10.5 % (2.0-12.0); NEUTROPHILS # (AUTO) 4.5 /CMM (1.8-8.9); NEUTROPHILS % (AUTO) 49.5 % (43.0-81.0); PLATELET COUNT (AUTO) 470 /CMM (150-450); RED BLOOD CELL COUNT(AUTO) 4.88 MIL/uL (4.5-6.0); WHITE BLOOD COUNT (AUTO) 9.1 K/uL (4.3-11.0)
[2020-05-02 07:13] LABS: ALBUMIN 2.4 g/dL (3.4-5.0); BILIRUBIN,DIRECT 0.2 mg/dL (0.0-0.2); BILIRUBIN,TOTAL 0.5 mg/dL (0.2-1.0); CREATININE 0.9 mg/dL (0.6-1.3); POTASSIUM 5.1 mmol/L (3.5-5.1); TOTAL PROTEIN, SERUM 6.3 g/dL (6.4-8.2)
--- NOTE | 2020-05-02 08:00 | NUR ---
TELE/RN OPENING NOTE THE PATIENT IS RECEIVED IN BED. PATIENT IS ALERT AND ORIENTED X4. DENIES PAIN. PATIENT IS ON OXYGEN AT 3L/MIN VIA NASAL CANNULA AND DENIES SOB. RESPIRATION REGULAR AND UNLABORED. LAC G 18 AND NAYELI MIDLINE G 18 BOTH PATENT AND SALINE LOCKED. BED LOW AND LOCKED. SIDE RAILS UP X2. CALL LIGHT WITHIN REACH. WILL CONTINUE TO MONITOR.
[2020-05-02] MEDS: BLOOD SUGAR DIAGNOSTIC 1 EACH STRIP IN SCH ×3 (08:05→17:16)
[2020-05-02] MEDS: INSULIN REGULAR, HUMAN 100 UNIT/ML 3 ML VIAL SQ PRN ×3 (08:06→17:16)
[2020-05-02] MEDS ORDERED: APIX5TAB PO (08:26)
[2020-05-02] MEDS ORDERED: DEXA6TAB6 PO (08:26)
--- NOTE | 2020-05-02 08:44 | NUR ---
HEEL CASER CLOSING NOTES PATIENT IN BED; A/O X4 ABLE TO MAKE NEEDS KNOWN. ON O2 3LPM VIA NASAL CANNULA; TOLERATING WELL WITH NO SOB. ON EXTERNAL CARDIAC MONITORING READING SR AND HR AT 67. SAFETY MEASURES IN PLACE; BED AT LOWEST LOCKED POSITION; SIDE RAILS UP X2, CALL LIGHT WITHIN REACH, ALL NEEDS MET AT THIS TIME. ENDORSED ZAHRA TO ONCOMING MORNING NURSE.
[2020-05-02] MEDS: METOPROLOL TARTRATE 25 MG TABLET PO SCH ×2 (09:00→20:43)
[2020-05-02] MEDS: DEXAMETHASONE SOD PHOSPHATE 10 MG/ML VIAL IV SCH (09:13)
[2020-05-02] MEDS: APIXABAN 5 MG TABLET PO SCH ×2 (09:16→17:17)
[2020-05-02 10:08] LABS: BAND % (MANUAL) 2 % (0.0-5.0); EOSINOPHILS % (MANUAL) 2 % (0-4); LYMPHOCYTES % (MANUAL) 44 % (16-48); MONOCYTES % (MANUAL) 8 % (0-11.0); NEUTROPHILS % (MANUAL) 42 (42-76); REACTIVE LYMPHOCYTES 2 % (0-0)
--- NOTE | 2020-05-02 10:34 | NUR ---
RN/NOTE OXYGEN LEVEL IN ROOM AIR PATIENT`S OXYGEN LEVEL IN ROOM AIR AT REST IS 85%.
--- NOTE | 2020-05-02 10:40 | NUR ---
TELE/RN NOTE THE PATIENT IS KEPT ON OXYGEN AT 3L/MIN VIA NASAL CANNULA TO MAINTAIN OXYGEN SATURATION AT 93-94%.
[2020-05-02] MEDS: REMDESIVIR (CHARGED) 100 MG in IV NS 0.9% 100 ML IV SCH (12:32)
--- NOTE | 2020-05-02 18:52 | NUR ---
TELE/RN CLOSING NOTE THE PATIENT IS ALERT AND ORIENTED X4. DENIES PAIN. RECEIVING OXYGEN AT 3L/MIN VIA NASAL CANNULA AND OXYGEN SATURATION IS AT 95%. DENIES SOB. RESPIRATION REGULAR AND UNLABORED. TELE BOX READING IS SINUS RHYTHM 86. LAC G 18 AND NAYELI G 18 MIDLINE BOTH PATENT AND SALINE LOCKED. BED LOW AND LOCKED. SIDE RAILS UP X2. CALL LIGHT WITHIN REACH. WILL ENDORSE TO CYTOLOGY TECHNOLOGIST.
--- NOTE | 2020-05-02 21:30 | NUR ---
ALERT AND ORIENTATED SPEAKS OF GOING HOME AND GETTING IN THE SHOWER SMILING SATS 92- 94% ON 2 LITERS BELONGS WITH PATIENTS YELLOW TONED CHAIN AND CROSS CELL PHONE BLACK SHOES SWEAT PANTS AND A FRONT COUNTER ATTENDANT JACKET AND A SHIRT AND UNDER WEAR AND WHITE SOCKS AND HIS [facility] DRIVERS HERE PACKET AND PRESCRITIO GIVEN
[2020-05-07] MEDS ORDERED: APIXABAN 5 MG TABLET PO SCH (09:00)
== END 2020-05-02 21:30 | disposition home or self-care (01) | DRG 177 ==
LOC: ER 21:37 → TELE1 23:41 → ICU 04-27 12:32 → ICUOV 04-28 13:30 → ICU 04-28 21:05 → TELE2 04-29 17:12
PROVIDERS: ADMIT Nurse Practitioner Acute Care; ATTEND Internal Medicine
PROC: XW033E5 Introduction of Remdesivir Anti-infective into Peripheral Vein, Percutaneous Approach, New Technology Group 5 (ICD-10-PCS; principal; 2020-04-27)
PROC: XW13325 Transfusion of Convalescent Plasma (Nonautologous) into Peripheral Vein, Percutaneous Approach, New Technology Group 5 (ICD-10-PCS; 2020-04-27)
PROC: 05HY33Z Insertion of Infusion Device into Upper Vein, Percutaneous Approach (ICD-10-PCS; 2020-04-28)
DX: U07.1 COVID-19 (principal); N17.0 Acute kidney failure with tubular necrosis; J12.82 Pneumonia due to coronavirus disease 2019; J96.01 Acute respiratory failure with hypoxia; I21.A1 Myocardial infarction type 2; J15.9 Unspecified bacterial pneumonia; I26.92 Saddle embolus of pulmonary artery without acute cor pulmonale; E44.0 Moderate protein-calorie malnutrition; I82.412 Acute embolism and thrombosis of left femoral vein; D68.59 Other primary thrombophilia; E87.2 Acidosis; E87.1 Hypo-osmolality and hyponatremia; I82.432 Acute embolism and thrombosis of left popliteal vein; R18.8 Other ascites; Z79.84 Long term (current) use of oral hypoglycemic drugs; E11.65 Type 2 diabetes mellitus with hyperglycemia; E87.5 Hyperkalemia; E86.1 Hypovolemia; Z74.09 Other reduced mobility; I27.20 Pulmonary hypertension, unspecified; Z79.01 Long term (current) use of anticoagulants; N18.9 Chronic kidney disease, unspecified
CPT/HCPCS: 36415; 71045-TC; 80048-TC; 80053-TC; 80061-TC; 80076-TC; 81001; 82248-TC; 82550-TC; 82570-TC; 82728-TC; 82962-TC; 83605-TC; 83615-TC; 83735-TC; 83880; 84100-TC; 84155-TC; 84300-TC; 84443-TC; 84484-TC; 85025-TC; 85378-TC; 85610-TC; 85730-TC; 86140-TC; 86850-TC; 87040-TC; 87081-TC; 93307-TC; 93970-TC; A4216; C9803; G0378; J0456; J0692; J0696; J1100; J1650; J1815; J2997; J3490; J7030; J7040; J7050; J7060; P9017-BL; Q9967; U0003